=== PATIENT | female | born 1965 | race Caucasian/White ===

== ENCOUNTER 2017-01-29 16:18 | Outpatient (CLI) | payer BC | END 2017-01-29 16:20 | LOC: LABRHC 16:18 | PROVIDERS: ATTEND Family Medicine | DX: Z12.4 Encounter for screening for malignant neoplasm of cervix (principal) | CPT/HCPCS: 88148; G0143 ==

== ENCOUNTER 2017-11-27 14:51 | Outpatient (CLI) | payer BC ==
--- NOTE | 2017-11-27 17:53 | Diagnostic Imaging Report ---
NEYMAR ROTH [facility] [id number] [facility] [address] [address] Report Submission Date: Nov 27, 2017 3:32:02 PM CDT Patient Study Name: GARLAND CHINCHILLA Date: Nov 27, 2017 3:12:28 PM CDT Modality Type: DX Gender: F Description: CHEST : 69 Institution: [facility] Physician: NEYMAR ROTH Examination: PA and lateral chest. History: PT STATES SOA AND COUGH X 3 WEEKS. PT STATES NO HISTORY OF SMOKING. (Hx ) Findings: PA lateral chest demonstrate a normal cardiac and mediastinal silhouette. No focal infiltrate. No blunting of the costophrenic margins. Osseous structures are appropriate for age. Impression: No acute pulmonary process. Electronically signed on Nov 27, 2017 3:32:02 PM CDT by: Yvon SCHWAB
== END 2017-11-27 14:52 ==
LOC: RAD 14:51
PROVIDERS: ATTEND Family Medicine
DX: R06.02 Shortness of breath (principal)
CPT/HCPCS: 71046

== ENCOUNTER 2018-12-02 15:26 | Outpatient (CLI) | payer BC ==
[2018-12-02 16:01] LABS: eGFR (Non-African) > 60
== END 2018-12-02 15:28 ==
LOC: LAB 15:26
PROVIDERS: ATTEND Internal Medicine Cardiovascular Disease
DX: I42.9 Cardiomyopathy, unspecified (principal)
CPT/HCPCS: 36415; 80048